=== PATIENT | female | born 1975 | race Caucasian/White ===

== ENCOUNTER 2017-02-08 05:33 | Emergency (ER) | payer OTHER ==
[2017-02-08 05:46] VITALS: TEMP 98.2
--- NOTE | 2017-02-08 05:57 | CPEKG ---
Heart Rate: 66 RR Interval: 909 P-R Interval: 172 QRSD Interval: 100 QT Interval: 436 QTC Interval: 457 P [place]: 36 QRS [place]: 15 T Wave [place]: 15 EKG Severity - NORMAL ECG - EKG Impression: SINUS RHYTHM Electronically Signed By: Julianne Vigil 08-Feb-2017 07:40:14
[2017-02-08 06:15] LABS: PLATELET COUNT 293 10^3/uL (150-400)
[2017-02-08] MEDS ORDERED: ASPIRIN 81 MG CHEWABLE TAB PO ONE (06:19)
--- NOTE | 2017-02-08 06:20 | EDPHY ---
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 Time Seen by Provider: 02/08/17 06:17 HPI/ROS: Chief complaint: Chest pain for one and half weeks History of present illness: This 41-year-old female with past medical history of obstructive sleep apnea, hiatal hernia, reflux, and hypertension presents emergency department today with her for complaints of chest discomfort that has been ongoing for the last one and a half weeks. She states it is a dull discomfort on the left side of her chest radiating around to her back and her left shoulder. At its worst it was 5/10. It has been constant but she will occasionally have a more intense discomfort which causes her to feel short of breath. It can last up to 30 min at a time. Currently her discomfort is 0 to 1/10. He she has not been nauseated but states lately everything has been giving her heartburn. She rolled over in bed onto her left side this morning and this pain intensified. Sometimes she can pinpoint the pain by pressing on her chest wall. However she does not know if anything makes the pain worse and she has not had any alleviating factors either. She tried ibuprofen last week without relief. Yesterday she felt a little lightheaded but denies having palpitations. She has not gotten diaphoretic with the pain. She has not had a fever, cough, sore throat, persistent shortness of breath, abdominal pain, leg pain or swelling. She states she was diagnosed clinically with a pneumonia over and felt better after completing a Z-Walter. She has no prior coronary artery disease. Her maternal grandfather had a heart attack before for the age of 55. Otherwise no other family history of premature coronary artery disease. She states at age 34 when she had her gallbladder out she also had an upper and lower endoscopy and was told she had a hiatal hernia. REVIEW OF SYSTEMS: Constitutional: No fever, no chills. Eyes: No discharge. ENT: No sore throat. Respiratory: No cough. Cardiac: SEE HPI. No palpitations. Gastrointestinal: No abdominal pain, no vomiting. Genitourinary: No hematuria. Musculoskeletal: SEE HPI. Skin: No rashes. Neurological: Mild headache. Source: Patient, Family () Exam Limitations: No limitations - Personal History LMP (Females 10-55): 15-21 Days Ago (; Denies chance of . had vasectomy.) Current Tetanus Diphtheria and Acellular Pertussis (TDAP): Yes Tetanus Vaccine Date: <10 years - Medical/Surgical History PMH: Past medical history: Obstructive sleep apnea w/CPAP, hiatal hernia, gastroesophageal reflux, hypertension Past surgical history: Cholecystectomy, left knee surgery after a skiing accident Family history: Grandmother had colon cancer, maternal grandfather had premature coronary artery disease, mother had precancerous polyps, father in good health No known drug allergies Medications include lisinopril 20 mg daily Primary care provider is LIZZIE Payton Hx Asthma: No Hx Chronic Respiratory Disease: No Hx Diabetes: No Hx Cardiac Disease: No Hx Renal Disease: No Hx Cirrhosis: No Hx Alcoholism: No Hx HIV/AIDS: No Hx Splenectomy or Spleen Trauma: No Other PMH: med hx-GERD, HTN, PNA. surg-sara - Family History Significant Family History: Heart disease, Cancer - Social History Smoking Status: Never smoked Alcohol Use: Occasionally Drug Use: None Additional Social History: . Two children. - Physical Exam Exam: General Appearance: Alert, mild distress. Mildly anxious. Eyes: Pupils equal and round no pallor or injection. ENT, Mouth: Mucous membranes are moist. Respiratory: There are no retractions, lungs are clear to auscultation. Cardiovascular: Regular rate and rhythm. No murmur. Chest wall tenderness to palpation left upper chest. Gastrointestinal: Abdomen is soft and nontender, no masses, bowel sounds normal. No CVA tenderness. Neurological: Awake and alert, sensory and motor exams grossly normal. Skin: Warm and dry, no rashes or sign of shingles. Musculoskeletal: Neck is supple nontender. No JVD. Extremities are symmetrical, full range of motion. No calf pain or swelling. Psychiatric: Patient is oriented X 3, there is no agitation. DIFFERENTIAL DIAGNOSIS: After history and physical exam differential diagnosis was considered for but not limited to acute coronary syndrome, chest wall pain, gastroesophageal reflux disease, pleuritic pain status post pneumonia Constitutional: Initial Vital Signs Temperature (C) 98.2 F 02/08/17 05:44 Heart Rate 78 02/08/17 05:44 Respiratory Rate 16 02/08/17 05:44 Blood Pressure 120/77 02/08/17 05:44 O2 Sat (%) 97 02/08/17 05:44 O2 Delivery Mode Room Air Allergies/Adverse Reactions: No Known Allergies Allergy (Verified 02/08/17 05:41) Home Medications: Medication Instructions Recorded Lisinopril 02/08/17 Medical Decision Making - Diagnostics EKG Interpretation: Normal sinus rhythm, heart rate 66, no acute ischemic changes. No change from EKG May 27, 2015. ED Course/Re-evaluation: The patient was seen and examined, vital signs were reviewed and normal. Her EKG showed a normal sinus rhythm with no acute ischemic changes and there is no change from prior EKG dated May 27, 2015. She was given aspirin upon arrival. Her CBC, comprehensive metabolic panel, lipase, and troponin were normal. She did not meet perc criteria for d-dimer and no risk factors or clinical indication for pulmonary embolism. Chest x-ray possibly showed some mild prominence to the right pulmonary vasculature otherwise normal. A GI cocktail helped with her discomfort. At this time I feel it is safe for her to go home given the normal EKG and normal troponin in the presence of constant chest discomfort for the last 1 and half weeks. She will need follow up with her primary care provider for further risk stratification and possible stress echo. Her symptoms seem to be consistent with gastroesophageal reflux. I have advised her on dietary recommendations. She should return to the emergency room if symptoms change or worsen prior to her appointment with her primary care provider. The patient's blood pressure has been running low in the emergency department anywhere from 95 mm of mercury to 103 mm of mercury systolic. She has not yet taken her lisinopril. I have advised her to his skip this since she feels a little lightheaded when she sits or stands up. She should discuss this with her primary care provider as well. She does have a sphygmomanometer at home and will monitor her blood pressure and record it over the next couple of days. - Data Points Laboratory Results: Laboratory Results 02/08/17 05:50 02/08/17 05:50 02/08/17 02/08/17 02/08/17 05:50 05:50 05:50 WBC 8.70 10^3/uL 10^3/uL (3.80-9.50) RBC 4.95 10^6/uL 10^6/uL (4.18-5.33) Hgb 13.8 g/dL g/dL (12.6-16.3) Hct 40.6 % % (38.0-47.0) MCV 82.0 fL fL (81.5-99.8) MCH 27.9 pg pg (27.9-34.1) MCHC 34.0 g/dL g/dL (32.4-36.7) RDW 13.6 % % (11.5-15.2) Plt Count 293 10^3/uL 10^3/uL (150-400) MPV 10.5 fL fL (8.7-11.7) Neut % (Auto) 60.5 % % (39.3-74.2) Lymph % (Auto) 29.1 % % (15.0-45.0) [place] % (Auto) 7.2 % % (4.5-13.0) Eos % (Auto) 1.6 % % (0.6-7.6) Baso % (Auto) 0.8 % % (0.3-1.7) Nucleat RBC Rel Count 0.0 % % (0.0-0.2) Absolute Neuts (auto) 5.26 10^3/uL 10^3/uL (1.70-6.50) Absolute Lymphs (auto) 2.53 10^3/uL 10^3/uL (1.00-3.00) Absolute Monos (auto) 0.63 10^3/uL 10^3/uL (0.30-0.80) Absolute Eos (auto) 0.14 10^3/uL 10^3/uL (0.03-0.40) Absolute Basos (auto) 0.07 10^3/uL 10^3/uL (0.02-0.10) Absolute Nucleated RBC 0.00 10^3/uL 10^3/uL (0-0.01) Immature Gran % 0.8 % % (0.0-1.1) Immature Gran # 0.07 10^3/uL 10^3/uL (0.00-0.10) Sodium 137 mEq/L mEq/L (134-144) Potassium 4.0 mEq/L mEq/L (3.5-5.2) Chloride 100 mEq/L mEq/L (97-110) Carbon Dioxide 24 mEq/l mEq/l (22-31) Anion Gap 13 mEq/L mEq/L (8-16) BUN 11 mg/dL mg/dL (7-23) Creatinine 0.6 mg/dL mg/dL (0.6-1.0) Estimated GFR > 60 Glucose 97 mg/dL mg/dL (70-100) Calcium 9.0 mg/dL mg/dL (8.5-10.4) Total Bilirubin 0.3 mg/dL mg/dL (0.1-1.4) Conjugated Bilirubin 0.1 mg/dL mg/dL (0.0-0.5) Unconjugated Bilirubin 0.2 mg/dL mg/dL (0.0-1.1) AST 29 IU/L IU/L (14-46) ALT 57 IU/L H IU/L (9-52) Alkaline Phosphatase 90 IU/L IU/L (38-126) Troponin I < 0.012 ng/mL ng/mL (0.000-0.034) Total Protein 7.1 g/dL g/dL (6.3-8.2) Albumin 3.8 g/dL g/dL (3.5-5.0) Lipase 163 IU/L IU/L (23-300) Urine Color YELLOW Urine Appearance CLEAR Urine pH 6.0 (5.0-7.5) Ur Specific [place] 1.010 (1.002-1.030) Urine Protein NEGATIVE (NEGATIVE) Urine Ketones NEGATIVE (NEGATIVE) Urine Blood NEGATIVE (NEGATIVE) Urine Nitrate NEGATIVE (NEGATIVE) Urine Bilirubin NEGATIVE (NEGATIVE) Urine Urobilinogen 0.2 EU EU (0.2-1.0) Ur Leukocyte Esterase 1+ H (NEGATIVE) Urine RBC 1-3 /hpf /hpf (0-3) Urine WBC 3-5 /hpf H /hpf (0-3) Ur Epithelial Cells 2+ /lpf H /lpf (NONE-1+) Amorphous Sediment PRESENT /hpf /hpf (NONE-1+) Urine Bacteria TRACE /hpf H /hpf (NONE SEEN) Urine Mucus 2+ /lpf H /lpf (NONE-1+) Urine Glucose NEGATIVE (NEGATIVE) Medications Given: Discontinued Medications Al Hydroxide/Mg Hydroxide (Maalox Susp) 30 ml PO EDNOW ONE Stop: 02/08/17 06:56 Last Admin: 12/31/17 07:06 Dose: 30 ml Aspirin (Aspirin) 324 mg PO EDNOW ONE Stop: 02/08/17 06:20 Last Admin: 02/08/17 06:26 Dose: 324 mg Lidocaine (Lidocaine 2% Viscous) 5 ml PO EDNOW ONE Stop: 02/08/17 06:56 Last Admin: 02/08/17 07:06 Dose: 5 ml Departure - Departure Disposition: Home, Routine, Self-Care Clinical Impression: Chest pain Qualifiers: Chest pain type: other chest pain Qualified Code(s): R07.89 - Other chest pain Condition: Good Instructions: Chest Pain (ED), Gastroesophageal Reflux Disease (ED) Additional Instructions: It is unclear what is causing your chest discomfort at this time. Your EKG and cardiac enzymes (blood test) are normal despite you having this discomfort constantly over the last week and a half. You stated everything is giving you heartburn. Avoid caffeine, chocolate, peppermint, alcohol, spicy and fatty foods. Do not eat less than 4 hours from bedtime. Try [id number] Prilosec or Pepcid. Call first thing Thursday to arrange follow up with your primary care provider. Tell them you are an ER follow up for chest pain and we would like you seen within 2-3 days. Return to the ER immediately if symptoms worsen as discussed. Referrals: Loyda Juarez PA [Physician [employer] Distribution Supervisor] - 2-3 days without fail
[2017-02-08] MEDS ORDERED: MAG HYDROX/AL HYDROX/SIMETH 30 ML UDCUP PO ONE (06:55)
[2017-02-08] MEDS ORDERED: LIDOCAINE 2% VISCOUS 15 ML UDCUP PO ONE (06:55)
[2017-02-08 07:47] VITALS: RESP 18; O2SAT 97
[2017-02-08 07:52] VITALS: BP 101/66; PULSE 67
== END 2017-02-08 07:45 | disposition home or self-care (01) ==
LOC: CED 05:33
DX: R07.89 Other chest pain (principal); I10 Essential (primary) hypertension
CPT/HCPCS: 71020-PO; 80048-PO; 80076-PO; 81003-PO; 81015-PO; 83690-PO; 84484-PO; 85025-PO